=== PATIENT | female | born 1935 | race Caucasian/White ===

== ENCOUNTER 2021-09-28 10:54 | Outpatient (CLI) | payer OTHER | END 2021-09-28 11:00 | disposition home or self-care (01) | LOC: NUCLEAR 10:54 | PROVIDERS: ATTEND Psychiatry & Neurology Neurology | DX: R93.1 Abnormal findings on diagnostic imaging of heart and coronary circulation (principal); R94.31 Abnormal electrocardiogram [ECG] [EKG] ==